=== PATIENT | female | born 1995 | race African-American/Black ===

== ENCOUNTER 2018-03-21 17:03 | Emergency (ER) | payer OTHER ==
[~2018-03-21] VITALS: Ht 170.2 cm; Wt 58.8 kg
[~2018-03-21 17:03] MED LIST: DEPO-PROVER150 MG/ML IM; ENDOCET 5-3251 EACH PO; IBUPROFEN800 MG PO; KEFLEX500 MG PO; MEDROXYPRO150 MG/1 M IM; ULTRAM50 MG PO; ZOFRAN4 MG PO
[2018-03-21 17:35] LABS: HEMATOCRIT 37.5 % (36.0-46.0); HEMOGLOBIN 13.2 G/DL (11.9-15.5); MCH 32.1 PG (29.0-34.0); MCHC 35.2 G/DL (30.0-36.0); MCV 91.2 FL (83-99); PLATELET COUNT 220 K/uL (156-360); RBC DIS.WIDTH-SD 44.2 % (39-53); RED BLOOD COUNT 4.11 M/uL (3.80-5.20)
[2018-03-21 17:44] LABS: CHLORIDE 107 mEq/L (99-109); POTASSIUM 3.6 mEq/L (3.7-5.4); SODIUM 140 mEq/L (136-147)
[2018-03-21 17:46] LABS: GLUCOSE 80 mg/dL (70-99)
[2018-03-21 17:50] LABS: GFR ESTIMATE (CALCULATED) > 59 mL/min/; UREA NITROGEN (BUN) 9 mg/dL (9-23)
[2018-03-21 17:56] LABS: TROP-I INTERPRETATION NEGATIVE; TROPONIN-I < 0.01 ng/mL (0.0-0.30)
[2018-03-21 19:23] LABS: D-DIMER ELISA < 150.00 ng/mLDDU (<230)
[2018-03-21 19:51] LABS: THYROTROPIN (TSH) 2.1 MIU/L (0.4-5.5)
[2018-03-21 20:49] VITALS: BP 121/67
== END 2018-03-21 20:50 | disposition home or self-care (01) ==
LOC: EME 17:03
DX: R07.9 Chest pain, unspecified (principal)
CPT/HCPCS: 71046; 80048; 84443; 84484; 85027; 85379; 93005; 99281; 99284